=== PATIENT | male | born 1990 | race Hispanic/Latino ===

== ENCOUNTER 2020-08-13 20:36 | Emergency (ER) | payer OTHER ==
[~2020-08-13] VITALS: Ht 175.3 cm; Wt 84.6 kg
[2020-08-13 20:37] VITALS: BP 128/76
== END 2020-08-13 21:51 | disposition home or self-care (01) ==
LOC: M ED 20:36
DX: T16.1XXA Foreign body in right ear, initial encounter (principal); Y92.89 Other specified places as the place of occurrence of the external cause